=== PATIENT | male | born 1985 | race Caucasian/White ===

== ENCOUNTER 2019-03-01 10:03 | Emergency (ER) | payer BC, SELFPAY ==
[2019-03-01 10:06] VITALS: BP 145/91; PULSE 72; RESP 12; TEMP 36.9; O2SAT 97; BMI 27.1
--- NOTE | 2019-03-01 10:16 | RAD_ITS ---
STUDY: X-RAY CHEST REASON FOR EXAM: Male, 33 years old. Palpitations and chest tightness. TECHNIQUE: Single AP portable view of the chest. COMPARISON: None. FINDINGS: EKG electrodes are seen. The lungs are clear and expanded. There is no demonstrated pleural abnormality. Normal size heart. Normal mediastinum and adeline. Normal visualized pulmonary arteries. Normal visualized aortic arch and descending thoracic aorta. Normal visualized thoracic spine. Normal visualized ribs, clavicles, and shoulders. There is no demonstrated abnormality of the visualized soft tissue structures of the upper abdomen. RAD/Chest 1 View (Portable) IMPRESSION: Normal x-ray examination of the chest. Electronically Signed: Brent Williamson, at 10:43 EDT , Service support ,
--- NOTE | 2019-03-01 10:16 | EKG12_ITS ---
Test Reason : CP Blood Pressure : / mmHG Vent. Rate : 066 BPM Atrial Rate : 066 BPM P-R Int : 136 ms QRS Dur : 086 ms QT Int : 384 ms P-R-T Axes : 055 073 024 degrees QTc Int : 402 ms Normal sinus rhythm with sinus arrhythmia Normal ECG Confirmed by VIDAL BRUMFIELD ([id number]), fan mail editor ANIA DOVE ([id number]) on 03/06/2019 1:33:41 PM Referred By: DOMENICO/BERE Confirmed By:VIDAL BRUMFIELD
--- NOTE | 2019-03-01 10:18 | ED.DCSUM_ITS ---
History of Present Illness Chief Complaint: Chest Pain Detail of Chief Complaint: Nausea, chest pain Informant: Patient, Family Onset: Yesterday Current Severity: Mild Maximum Severity: Moderate Narrative: Patient reports feeling nauseated last evening that seemed to spontaneously resolve. Today he got recurrent nausea followed by chest tightness and felt like his heart was racing. He states he had 3 separate waves of pain. He seemed to breathe through it and it would ease off. He denies shortness of breath or recent URI symptoms. No cough. He denies history of reflux. No cardiac history no DVT risk factors. Past Medical History - Allergies and Home Meds Allergies/Adverse Reactions: Allergies No Known Allergies Allergy (Verified 03/01/19 10:09) Prior records reviewed: Yes Past Medical History: - - Reviewed Lives: Spouse/ Significant Other Smoking Status: Former smoker Alcohol: None Drugs: None Review of Systems General: Denies: Chills, Fever Eyes: Denies: Visual changes - bilaterally ENT: Denies: Bilateral ear pain Cardiovascular: Reports: Chest pain, Palpitations Respiratory: Denies: Dyspnea Gastrointestinal: Reports: Nausea. Denies: Abdominal pain, Vomiting, Diarrhea Genitourinary: Denies: Dysuria Skin: Denies: Rash Neurological: Denies: Headache Endocrine: Denies: Polyuria, Polydipsia Hematologic: Denies: Easy bruising Allergy: Denies: Uticaria Physical Exam Vital Signs/Narrative: Vital Signs Temp Pulse Resp BP Pulse Ox 03/01/19 10:06 98.4 F 72 12 145/91 H 97 Inital Vital Signs reviewed: Yes General: Well nourished Head: Normocephalic Eyes: Perrl ENT: Moist mucous membranes Neck: Supple Cardiovascular: Regular rate, Regular rhythm Respiratory: No distress, CTA bilaterally Abdomen: Soft, Nontender, Hypoactive bowel sounds Extremities: Nontender, No edema Skin: Normal color, No rash Neurological: Alert, Oriented x3 Psychological: Normal affect Diagnostic/Tx/Re-eval Impressions Chest X-Ray 03/01/19 10:16 IMPRESSION: Normal x-ray examination of the chest. Electronically Signed: Brent Williamson, at 10:43 EDT , Service support , 03/01/19 10:16 Chest 1 View (Portable) [RAD] Stat Laboratory Results 03/01/19 03/01/19 03/01/19 10:25 10:25 10:25 WBC 9.9 RBC 4.81 Hgb 14.3 Hct 42.2 MCV 87.7 MCH 29.7 MCHC 33.9 RDW Std Deviation 39.1 RDW Coeff of Senait 12.2 Plt Count 271 MPV 9.4 Immature Gran % (Auto) 0.500 Neut % (Auto) 81.3 H Lymph % (Auto) 10.0 L Thayer % (Auto) 6.7 Eos % (Auto) 1.2 Baso % (Auto) 0.3 Absolute Neuts (auto) 8.0 H Absolute Lymphs (auto) 0.99 Nucleated RBC % 0 D-Dimer Quant (PE/DVT) < 0.27 L Sodium 137 Potassium 4.6 Chloride 105 Carbon Dioxide 25.0 Anion Gap 7 BUN 13 Creatinine 0.99 Estim Creat Clear Calc 106.13 Est GFR (MDRD) Af Amer 112 Est GFR (MDRD) Non-Af 92 BUN/Creatinine Ratio 13.1 Glucose 122 H Calcium 8.3 L Total Bilirubin 0.60 Direct Bilirubin 0.10 AST 28 ALT 25 Alkaline Phosphatase 58 Troponin I < 0.015 Total Protein 7.2 Albumin 4.0 Globulin 3.2 Lipase 85 - EKG Initial EKG Interpretation: Sinus Rhythm - Sinus at 66 with no acute ischemia. - Medical Decision Making Patient presents with upper abdominal pain and some chest tightness. He had some nausea this seems to be worse with food. Patient was given Zofran and Protonix here. Prehospital EKG as well as ours are unremarkable. Cardiac work- up including d-dimer is negative. LFTs and lipase are normal. On repeat evaluation patient feels well and has no complaints. He will be given Zofran and Prilosec for home. He will return for worsening symptoms or concerns. He will follow-up with his primary care physician. ED Disposition - Plan for ED Patient: Disposition: Home or Assisted Living Diagnosis: Atypical chest pain, Nausea Instructions: CHEST PAIN, Uncertain Cause, GERD (Adult) Prescriptions: Omeprazole [Prilosec] 20 mg PO DAILY #30 capsule Ondansetron [Zofran Odt] 4 mg PO Q8H PRN PRN #10 tablet PRN Reason: Nausea Referrals: Reyna Perez MD [Primary Care Provider] - 1 Week
[2019-03-01 10:37] LABS: Absolute Lymphocyte Count 0.99 X10^3/uL (0.83-4.51); Basophil# 0.03 X10^3/uL; Basophil% 0.3 % (0-1); Eosinophil# 0.12 X10^3/uL; Eosinophils% 1.2 % (0-5); Hematocrit 42.2 % (40-54); Hemoglobin 14.3 g/dL (13.0-16.5); Lymphocyte # 0.99 X10^3/ul (4.0); Mean Corp Hgb Conc 33.9 g/dL (32-36); Mean Corpuscular Hgb 29.7 pg (27.0-32.0); Mean Corpuscular Volume 87.7 fL (80-94); Mean Platelet Vol. 9.4 fl (6.2-12.0); Monocyte# 0.66 X10^3/uL; Monocyte% 6.7 % (0-10); NRBC Flagged by Analyzer 0 % (0-5); Neutrophil # 8.02 X10^3/uL (2.7-7.7); Neutrophil % 81.3 % (47-70); Platelet Count 271 K/mm3 (150-450); RBC Distribution Width CV 12.2 % (11.6-14.6); RBC Distribution Width SD 39.1 fl (35.1-43.9); Red Blood Count 4.81 M/mm3 (4.6-6.2); White Blood Count 9.9 K/mm3 (4.4-11.0)
[2019-03-01] MEDS: Ondansetron 4 MG/2 ML Vial IV (10:40)
[2019-03-01] MEDS: 0.9% Normal Saline 1,000 ML 150 ML IV (10:41)
[2019-03-01 10:49] LABS: D-Dimer Quantitative (DVT/PE) < 0.27 FEU/ug/m (0.27-0.49)
[2019-03-01 11:00] VITALS: BP 120/76; PULSE 67; RESP 16; O2SAT 97
[2019-03-01 11:30] LABS: AST(SGOT) 28 U/L (15-37); Alanine Aminotransfer ALT/SGPT 25 U/L (16-61); Alkaline Phosphatase 58 U/L (45-117); Anion Gap 7 (5-15); BUN 13 mg/dL (7-18); BUN/Creat Ratio 13.1 RATIO (10-20); Calcium,Total 8.3 mg/dL (8.5-10.1); Chloride 105 mmol/L (98-107); Creatinine, Serum 0.99 mg/dL (0.70-1.30); EST Glomerular Filtration Rate 92 mL/min (>60); Est Glom Filt Rate - Afr Amer 112 mL/min (>60); Estimated Creatinine Clearance 106.13 ml/min; Globulin 3.2 g/dL (2.2-4.2); Glucose 122 mg/dL (74-106); Lipase 85 U/L (73-393); Potassium 4.6 mmol/L (3.5-5.1); Protein, Total 7.2 g/dL (6.4-8.2); Sodium Level 137 mmol/L (136-145)
[2019-03-01 12:00] VITALS: BP 124/81; PULSE 38; RESP 14; O2SAT 98
[2019-03-01 12:40] VITALS: BP 131/74; PULSE 68; RESP 15; O2SAT 98
== END 2019-03-01 12:41 | disposition home or self-care (01) ==
PROVIDERS: Emergency Provider Emergency Medicine; Family Provider Family Medicine; PCP Family Medicine
DX: R07.89 Other chest pain (principal); R11.0 Nausea; R00.2 Palpitations; Z87.891 Personal history of nicotine dependence
CPT/HCPCS: 71045; 80048; 80076; 83690; 84484; 85025; 85379; 93005; 96365; 96375; 99285; J7030; A4216; J2405